=== PATIENT | male | born 1945 | race Caucasian/White ===

== ENCOUNTER 2024-10-25 05:42 | Day surgery (SDC) | payer MEDICARE, BC ==
[2024-10-24 11:19] LABS: MEAN PLATELET VOLUME 7.6 FL (7.4-10.4); RED CELL DISTRIBUTION WIDTH 13.2 % (11.5-14.5)
[2024-10-24 11:29] LABS: CREATININE 1.05 MG/DL (0.60-1.10); TOTAL CARBON DIOXIDE 26.5 MMOL/L (24-32); eGFR 68 ML/MIN
[2024-10-24 11:31] LABS: APTT 25 SECONDS (22-32); INR 1.1 INR
[2024-10-25] VITALS (11 sets, daily range): BP systolic 127–156; BP diastolic 54–72; PULSE 57–65; RESP 14–20; TEMP 99; O2SAT 93–97
[~2024-10-25] VITALS: Ht 182.9 cm; Wt 95.6 kg
[~2024-10-25 05:42] MED LIST: ACET-1025 PO; AMLO10TA PO; AZIL1TAB3 PO; CHOL100046 PO; GARL100T PO; OMEP40CA21 PO; [UNRECOGNIZED DRUG - CODE] PO
[2024-10-25] MEDS ORDERED: normal saline 1000ml 1,000 ML IV SCH (06:20)
[2024-10-25] MEDS ORDERED: ceFAZolin 2gm/dext,iso 50mL 50 ML IV ONE (06:20)
[2024-10-25] MEDS ORDERED: ASPI-1265 PO (06:26)
--- NOTE | 2024-10-25 06:26 | ELECTROCARDIOGRAPH REPORT ---
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 LUIS ENRIQUE Vega Measurements Intervals [place] Rate: 61 P: 39 SC: 257 QRS: -8 QRSD: 148 T: 144 QT: 469 QTc: 473 Interpretive Statements Sinus rhythm Ventricular premature complex Prolonged SC interval Left bundle branch block Electronically Signed On 10-25-2024 17:26:[address] LUIS ENRIQUE Vega Please click the below link to view image of tracing.
[2024-10-25] MEDS ORDERED: TERA10CA4 PO (06:29)
[2024-10-25] MEDS ORDERED: LOSA100T58 PO (06:29)
[2024-10-25] MEDS ORDERED: ATOR40TA72 PO (06:29)
[2024-10-25] MEDS ORDERED: LIDOcaine 1% W/epiNEPHrine 1:100,000 20ml vial ONE (07:30)
[2024-10-25] MEDS ORDERED: fentaNYL/PF 50MCG/1 ML 2ML syringe ONE (07:30)
[2024-10-25] MEDS ORDERED: midazolam 1 mg/ML 2ml injection ONE ×2 (07:30→09:04)
[2024-10-25] MEDS ORDERED: HYDROcodone/acetaminophen 5mg/325mg tablet PO PRN (10:25)
[2024-10-25] MEDS ORDERED: HYDROcodone/acetaminophen 10/325mg tab PO PRN (10:25)
[2024-10-25] MEDS ORDERED: normal saline 1000ml 1,000 ML IV ONE (10:30)
[2024-10-25] MEDS ORDERED: normal saline 500ml IV soln 500 ML IV ONE (10:30)
[2024-10-25] MEDS ORDERED: CEPH-585 PO (10:40)
[2024-10-25] MEDS: vancomycin/NS 1 GM ADD-VANTAGE 250 ML IV ONE (11:25)
--- NOTE | 2024-10-25 11:33 | RADIOLOGY REPORT ---
EXAM: DI CHEST,TWO VIEWS CLINICAL HISTORY: POST PACEMAKER PROCEDURE @ 1100 COMPARISON: None TECHNIQUE: Frontal and lateral view of the chest was obtained FINDINGS: Lines and Tubes: Cardiac pacemaker projects over left chest wall Lungs: No focal consolidation. Pleura: No effusion. No pneumothorax. Cardiomediastinal contours: Unremarkable. Atherosclerotic vascular calcifications of the thoracic ao rta are noted. Bones: No acute osseous abnormality. IMPRESSION: No acute cardiopulmonary disease.
[2024-10-25] MEDS ORDERED: sod chloride 0.9% 10ml flush syringe IV SCH (16:00)
--- NOTE | 2024-10-26 05:28 | CARDIOLOGY REPORT ---
DATE OF SERVICE: 10/25/2024 DICTATING PHYSICIAN: LUIS ENRIQUE Thompson MD CARDIAC PACEMAKER IMPLANTATION REPORT PRIMARY PHYSICIAN: Mariluz Min DO INDICATIONS: The patient is an 79-year-old male with history of hypertension, hyperlipidemia, AV block, and sick sinus syndrome. The patient had a Holter monitor which showed a lowest heart rate of 36 with a pause up to 2.4 seconds. Subsequently, the patient had another event monitor back on 08/18/2024 showed his heart rate was 24. The patient had left bundle branch block and there was some short runs of tachycardia. The patient has exertional fatigue and tiredness. After the discussion of risks and benefits, the patient prefers to proceed with the definitive permanent pacemaker implantation. Risks, benefits, and alternative options discussed and informed consent obtained. PREPROCEDURE DIAGNOSIS: Sick sinus syndrome with symptomatic bradycardia. POSTPROCEDURE DIAGNOSIS: Sick sinus syndrome with symptomatic bradycardia. PROCEDURES DONE: * Fluoroscopy. * Pacemaker implantation. * Conscious sedation time of 75 minutes. BLOOD LOSS: 75 mL. SURGEON: LUIS ENRIQUE Thompson MD, [facility] ANESTHESIA: Local anesthesia with conscious sedation. COMPLICATIONS: None. DESCRIPTION OF PROCEDURE: Left infraclavicular area was prepped and draped in the usual fashion. Two separate accesses obtained in the left subclavian vein using Seldinger technique and two micropuncture wires were replaced with 2 J-wires. A horizontal incision was placed in the left infraclavicular area. Using electrocautery, subcutaneous pre-pectoral pocket was fashioned. External ends of the J-wires were retrieved into the pacemaker pocket. Two 7-Kinyarwanda sheaths were advanced over the J-wires. Through one of them, the RV lead was advanced to the RV apex, screwed into the RV apex. Appropriate pacing and sensing thresholds obtained, sheath was removed by peel-away technique and the lead anchored to subcutaneous tissue with Ethibond. Through the second 7-Kinyarwanda sheath, the right atrial lead was advanced to the right atrium. J-wire was formed, screwed into the right atrial appendage. Appropriate pacing and sensing thresholds obtained. Sheath removed in peel-away technique and lead anchored to the subcutaneous tissue. Pocket was irrigated with copious antibiotic solution. Leads connected to appropriate sockets of the pulse generator. Set screws were tightened. Tug test performed and the pacemaker was suspended into the pacemaker pocket. The pocket was closed with continuous 0 Vicryl followed by interrupted 0 Vicryl, third layer of interrupted 2-0 Vicryl applied. Skin approximated with medina. Pressure dressing applied. The patient tolerated the procedure with no complications. TECHNICAL INFORMATION: DEVICE USED: Medtronic Myrna MRI pacemaker. Model #W3DR01, serial #[id number], [employer]onic, 10/25/2024, left pectoral location. RIGHT ATRIAL LEAD: Model #4076, 52 cm long, serial number [id number], [employer]onic, 10/25/2024, right atrial appendage, P-wave amplitude of 1.9 millivolts, 494 ohms of impedance, 0.75 pacing threshold at 0.4 milliseconds. RV LEAD: Model #5076, 58 cm long, serial #[id number], [employer]onic, 10/25/2024, RV apex, R-wave amplitude of 14.6, 374 ohms of impedance, pacing threshold of 0.5 volt at 0.4 milliseconds. IMPRESSION: An 79-year-old male with sick sinus syndrome, symptomatic bradycardia, underwent successful AV sequential pacemaker implantation with no complications. LUIS ENRIQUE Thompson MD TID: [id number] RECEIPT: [id number] BROOKE/TRIXIE/ABDON cc: Mariluz Min DO MTDErlin
== END 2024-10-25 14:15 | disposition home or self-care (01) ==
LOC: SSTAY O 05:42
PROVIDERS: ATTEND Internal Medicine Cardiovascular Disease
DX: I49.5 Sick sinus syndrome (principal); I10 Essential (primary) hypertension; I49.3 Ventricular premature depolarization; I44.7 Left bundle-branch block, unspecified; E78.5 Hyperlipidemia, unspecified; Z90.49 Acquired absence of other specified parts of digestive tract; Z98.49 Cataract extraction status, unspecified eye; Z86.73 Personal history of transient ischemic attack (TIA), and cerebral infarction without residual deficits; Z79.01 Long term (current) use of anticoagulants; Z98.890 Other specified postprocedural states; Z79.899 Other long term (current) drug therapy; Z96.611 Presence of right artificial shoulder joint; Z79.82 Long term (current) use of aspirin
CPT/HCPCS: 33208; 36415; 71046; 80048; 85025; 85610; 85730; 93005; 99152; 99153; A4565; A6402; C1785; C1898; J0690; J1200; J2250; J3010; J3370; J3490; J7030; Z7610; A6449; J3373